=== PATIENT | female | born 2005 | race Caucasian/White ===

== ENCOUNTER → 2024-11-10 08:31 | Outpatient (BNVA) | payer OTHER, SELFPAY | PROVIDERS: Visit Provider Physician Assistant Medical | DX: S16.1XXA Strain of muscle, fascia and tendon at neck level, initial encounter (principal); S46.811A Strain of other muscles, fascia and tendons at shoulder and upper arm level, right arm, initial encounter; S46.911A Strain of unspecified muscle, fascia and tendon at shoulder and upper arm level, right arm, initial encounter; X50.1XXA Overexertion from prolonged static or awkward postures, initial encounter; M54.12 Radiculopathy, cervical region | CPT/HCPCS: 72050; 73030; 99204 ==

== ENCOUNTER → 2024-11-19 10:33 | Outpatient (BNVA) | payer OTHER, SELFPAY | PROVIDERS: Visit Provider Internal Medicine | DX: M79.89 Other specified soft tissue disorders (principal); Z02.79 Encounter for issue of other medical certificate | CPT/HCPCS: 99213 ==